=== PATIENT | female | born 1950 | race Caucasian/White ===

== ENCOUNTER 2018-07-04 09:09 | Day surgery (SDC) | payer MEDICARE ==
[~2018-07-04 09:09] MED LIST: AZELASTINE0.1 %; FLONASE AL50 MCG/ACT; SIMVASTATIN40 MG PO; SYMBICORT 80-4.5MCG; SYMBICORT1 AE1 IN; VENTOLIN H108 MCG/AC
[2018-07-04 12:07] VITALS: BP 10/55
== END 2018-07-04 11:55 | disposition home or self-care (01) ==
LOC: ENDO 09:09 → ORM 13:10 → ENDO 13:35 → ORM 13:40 → ENDO 15:05
PROVIDERS: ATTEND Internal Medicine Gastroenterology
PROC: 0DBN8ZX Excision of Sigmoid Colon, Via Natural or Artificial Opening Endoscopic, Diagnostic (ICD-10-PCS; principal; 2018-07-04)
PROC: 0DBK8ZX Excision of Ascending Colon, Via Natural or Artificial Opening Endoscopic, Diagnostic (ICD-10-PCS; 2018-07-04)
PROC: 0DBL8ZX Excision of Transverse Colon, Via Natural or Artificial Opening Endoscopic, Diagnostic (ICD-10-PCS; 2018-07-04)
PROC: 0DBH8ZX Excision of Cecum, Via Natural or Artificial Opening Endoscopic, Diagnostic (ICD-10-PCS; 2018-07-04)
PROC: 0DB48ZX Excision of Esophagogastric Junction, Via Natural or Artificial Opening Endoscopic, Diagnostic (ICD-10-PCS; 2018-07-04)
PROC: 0DB78ZX Excision of Stomach, Pylorus, Via Natural or Artificial Opening Endoscopic, Diagnostic (ICD-10-PCS; 2018-07-04)
DX: D12.0 Benign neoplasm of cecum (principal); D12.2 Benign neoplasm of ascending colon; D12.3 Benign neoplasm of transverse colon; D12.5 Benign neoplasm of sigmoid colon; K63.5 Polyp of colon; K64.4 Residual hemorrhoidal skin tags; K64.8 Other hemorrhoids; K21.9 Gastro-esophageal reflux disease without esophagitis; K29.70 Gastritis, unspecified, without bleeding; K29.80 Duodenitis without bleeding; K31.9 Disease of stomach and duodenum, unspecified; K44.9 Diaphragmatic hernia without obstruction or gangrene; I10 Essential (primary) hypertension; Z79.899 Other long term (current) drug therapy; Z86.010 Personal history of colon polyps

== ENCOUNTER 2019-05-01 | Emergency (ER) | payer MEDICARE ==
[2019-05-01] MEDS ORDERED: ATORVASTATIN CA40 MG PO (11:12)
[2019-05-01] MEDS ORDERED: VENTOLIN HFA IN (11:17)
[2019-05-01] MEDS ORDERED: VOLTAREN1%GEL TOP (11:37)
[2019-05-01] MEDS ORDERED: TRAMADOL HYDROC50 MG PO ×2 (11:39→11:40)
[2019-05-01] MEDS ORDERED: CYCLOBENZAPR5 MG PO (11:41)
== END 2019-05-01 11:40 | disposition home or self-care (01) ==
DX: M54.5 Low back pain (principal); M25.551 Pain in right hip

== ENCOUNTER 2020-06-21 | Emergency (ER) | payer MEDICARE ==
[~2020-06-21] MED LIST changes: +ATORVASTATIN CA40 MG PO; +CYCLOBENZAPR5 MG PO; +TRAMADOL HYDROC50 MG PO; +VENTOLIN HFA IN; +VOLTAREN1%GEL TOP
[2020-06-21 11:15] LABS: HEMATOCRIT 43.9 % (37.0-47.0); HEMOGLOBIN 14.3 g/dl (12.0-16.0); IMMATURE GRANULOCYTES 0.3 % (0.0-5.0); MEAN CORPUSCULAR HGB 28.7 pG CALC (26.0-32.0); MEAN CORPUSCULAR HGB CONC 32.6 g/dL CAL (32.0-36.0); NEUT# 3.73 thou/uL (2.00-7.15); RED BLOOD COUNT 4.99 mill/uL (4.20-5.60); RED CELL DISTRI WIDTH 13.9 % (11.5-15.5)
[2020-06-21 11:27] LABS: ALKALINE PHOSPHATASE 83 u/l (38-126); AMYLASE 63 u/l (30-110); ANION GAP 14 (6-22 (CALC)); BILIRUBIN, TOTAL 0.5 mg/dL (0.0-1.4); BUN 13 mg/dL (8-23); BUN/CREATININE RATIO 15 (12-20 (CALC)); CARBON DIOXIDE 21 mmol/l (22-30); CHLORIDE 110 mmol/l (95-108); CREATININE 0.9 mg/dL (0.5-1.0); GFR > 60 ML/MIN (>=60 (CALC)); GFR FOR AFR.AMER. > 60 ML/MIN (>=60 (CALC)); LIPASE 474 u/l (23-300); POTASSIUM 4.1 mmol/l (3.5-5.1); SGOT/AST 19 u/l (9-36); SODIUM 141 mmol/l (137-146); TOTAL PROTEIN 7.3 g/dL (6.3-8.2)
[2020-06-21 12:02] LABS: URINE BILIRUBIN - DIPSTICK NEGATIVE (NEGATIVE); URINE BLOOD DIPSTICK MODERATE (NEGATIVE); URINE COLOR YELLOW; URINE GLUCOSE - DIPSTICK NEGATIVE (NEGATIVE); URINE KETONE NEGATIVE (NEGATIVE); URINE LEUK ESTERASE NEGATIVE (NEGATIVE); URINE PH 5.5 (4.5-8.0); URINE PROTEIN - DIPSTICK 30 mg/dL (NEG-TRACE); URINE SPECIFIC GRAVITY 1.025; URINE UROBILINOGEN - DIPSTICK 0.2 E.U./dL (0.2)
[2020-06-21 12:10] LABS: URINE NITRITE - DIPSTICK NEGATIVE (Negative)
[2020-06-21] MEDS ORDERED: CIPROFLOXACN500 MG PO (15:24)
[2020-06-21] MEDS ORDERED: METRONIDAZOL500 MG PO (15:24)
== END 2020-06-21 15:27 | disposition home or self-care (01) ==
PROVIDERS: Emergency Medicine
DX: K52.9 Noninfective gastroenteritis and colitis, unspecified (principal); K21.9 Gastro-esophageal reflux disease without esophagitis; F17.200 Nicotine dependence, unspecified, uncomplicated; Z20.822 Contact with and (suspected) exposure to COVID-19
CPT/HCPCS: Q9967